=== PATIENT | male | born 1970 | race Caucasian/White ===

== ENCOUNTER 2025-07-21 16:22 | Emergency (ER) | payer MEDICARE, MEDICAID ==
[~2025-07-21] VITALS: Ht 162.6 cm; Wt 68.2 kg
[2025-07-21 18:21] VITALS: TEMP 98.4
[2025-07-21] MEDS: ACETAMINOPHEN 325 MG TABLET PO ONE (20:45)
[2025-07-21 20:50] VITALS: BP 139/77; PULSE 89; RESP 16; O2SAT 97
== END 2025-07-21 20:52 ==
LOC: EMS 16:22
DX: S50.02XA Contusion of left elbow, initial encounter (principal); F20.9 Schizophrenia, unspecified; F31.9 Bipolar disorder, unspecified; I10 Essential (primary) hypertension; K21.9 Gastro-esophageal reflux disease without esophagitis; Z88.8 Allergy status to other drugs, medicaments and biological substances; W19.XXXA Unspecified fall, initial encounter; Y93.89 Activity, other specified; Y92.89 Other specified places as the place of occurrence of the external cause; Y99.8 Other external cause status
CPT/HCPCS: 99284